=== PATIENT | male | born 1955 | race Caucasian/White ===

== ENCOUNTER 2020-10-05 08:45 | Outpatient (RCR) | payer SELFPAY | END 2021-01-03 23:59 | disposition home or self-care (01) | LOC: ANHBWCAUD 08:45 | DX: Z46.1 Encounter for fitting and adjustment of hearing aid (principal) | CPT/HCPCS: 92593 ==

== ENCOUNTER 2021-05-19 11:30 | Outpatient (RCR) | payer SELFPAY | END 2021-07-07 23:59 | disposition home or self-care (01) | LOC: ANHBWCAUD 11:30 | DX: Z46.1 Encounter for fitting and adjustment of hearing aid (principal) | CPT/HCPCS: 99199; V5014 ==